=== PATIENT | female | born 1985 | race Caucasian/White ===

== ENCOUNTER 2023-06-01 16:06 | Inpatient (IN) | payer MEDICAID ==
[~2023-06-01] VITALS: Ht 170.2 cm; Wt 70.6 kg
[~2023-06-01 16:06] MED LIST: ALBU18HF12 IH; CARB-92 PO; DIVA500T53 PO; MULT1TAB28 PO; OLAN10TA74 PO; TOPI100T37 PO
[2023-06-01] MEDS ORDERED: ZOLPIDEM TARTRATE 10 MG TABLET PO PRN (17:30)
[2023-06-01] MEDS ORDERED: HALOPERIDOL 5 MG TABLET PO PRN (17:30)
[2023-06-01] MEDS ORDERED: LORazepam 2 MG TABLET PO PRN (17:30)
[2023-06-01 21:27] VITALS: BP 100/70; PULSE 72; RESP 19; TEMP 96
[2023-06-01 21:37] VITALS: BP 100/70; PULSE 72; RESP 19; TEMP 96.9; O2SAT 98
[2023-06-01 23:24] LABS: APPEARANCE,URINE CLEAR (CLEAR); BILIRUBIN,URINE NEGATIVE (NEGATIVE); GLUCOSE, URINE (UA) NEGATIVE (NEGATIVE); KETONES,URINE NEGATIVE (NEGATIVE); LEUKOCYTE ESTERASE ,URINE NEGATIVE (NEGATIVE); NITRATE,URINE NEGATIVE (NEGATIVE); OCCULT BLOOD,URINE MODERATE (NEGATIVE); PH,URINE 6.5 (5.0-8.0); PROTEIN,URINE NEGATIVE (NEGATIVE); SPECIFIC GRAVITIY, URINE 1.017 (1.003-1.030); UROBILINOGEN,URINE <=1.0 mg/dL (<=1.0)
[2023-06-01 23:44] LABS: BACTERIA,URINE None Seen /HPF (None Seen); SQUAMOUS EPITHELIAL CELL,UR None Seen /LPF (None Seen); WBC,URINE None Seen /HPF (0-5)
[2023-06-02 04:06] LABS: AMPHET/METH SCREEN,URINE NEGATIVE (NEGATIVE); BARBITURATE SCREEN, URINE NEGATIVE (NEGATIVE); BENZODIAZEPINES SCREEN,URINE NEGATIVE (NEGATIVE); CANNABINOID SCREEN,URINE NEGATIVE (NEGATIVE); COCAINE SCREEN,URINE NEGATIVE (NEGATIVE); METHADONE SCREEN, URINE NEGATIVE (NEGATIVE); OPIATE SCREEN,URINE NEGATIVE (NEGATIVE); PHENCYCLIDINE SCREEN,URINE NEGATIVE (NEGATIVE)
[2023-06-02] MEDS ORDERED: MAG HYDROX/AL HYDROX/SIMETH ES 30 ML SUSPENSION UDCUP PO PRN (05:30)
[2023-06-02] MEDS ORDERED: PETROLATUM,WHITE 28 GM JELLY TP PRN (05:30)
[2023-06-02] MEDS ORDERED: MAGNESIUM HYDROXIDE SUSPENSION 30 ML UDCUP PO PRN (05:30)
[2023-06-02] MEDS ORDERED: LOPERAMIDE HCL 2 MG CAPSULE PO PRN (05:30)
[2023-06-02] MEDS ORDERED: OMEPRAZOLE 20 MG CAPSULE PO PRN (05:30)
[2023-06-02] MEDS ORDERED: BACITRACIN 28 GM OINTMENT TP PRN (05:30)
[2023-06-02] MEDS ORDERED: CloNIDine HCL 0.1 MG TABLET PO PRN (05:30)
[2023-06-02] MEDS ORDERED: ACETAMINOPHEN 325 MG TABLET PO PRN (05:30)
[2023-06-02] MEDS ORDERED: ALBUTEROL SULFATE HFA 90 MCG/PUFF 8 GM INHALER IH PRN (05:30)
[2023-06-02] MEDS ORDERED: DOCUSATE SODIUM 100 MG CAPSULE PO PRN (05:30)
[2023-06-02] MEDS ORDERED: BENZOCAINE/MENTHOL LOZENGE PO PRN (05:30)
[2023-06-02] MEDS ORDERED: ONDANSETRON HCL 4 MG TABLET PO PRN (05:30)
[2023-06-02 09:19] VITALS: BP 107/65; PULSE 68; RESP 18; TEMP 96.3; O2SAT 98
[2023-06-02] MEDS: CarBAMazepine 200 MG TABLET PO SCH (10:54)
[2023-06-02] MEDS: TOPIRAMATE 100 MG TABLET PO SCH ×2 (10:54→18:03)
[2023-06-02 21:15] VITALS: BP 128/70; PULSE 62; RESP 18; TEMP 97.9; O2SAT 98
[2023-06-03 07:35] LABS: BASOPHILS % (AUTO) 0.3 % (0.0-2.0); EOSINOPHILS % (AUTO) 3.2 % (1.0-6.0); HEMATOCRIT 41.7 % (36-46); HEMOGLOBIN 13.5 g/dL (12.0-16.0); LYMPHOCYTES % (AUTO) 36.9 % (22.0-44.0); MEAN CORPUSCULAR HEMOGLOBIN 27.7 pg (26.0-34.0); MEAN CORPUSCULAR HGB CONC 32.4 G/dL (31.0-37.0); MEAN CORPUSCULAR VOLUME 86 fL (80-100); MONOCYTES # (AUTO) 0.5 K/uL (0.1-1.0); MONOCYTES % (AUTO) 8.9 % (2.0-9.0); NEUTROPHILS # (AUTO) 2.8 K/uL (1.8-7.7); NEUTROPHILS % (AUTO) 50.7 % (40.0-70.0); PLATELET COUNT (AUTO) 210 K/uL (150-450); RED BLOOD CELL COUNT(AUTO) 4.88 MIL/uL (4.00-5.20)
[2023-06-03 07:48] LABS: ALANINE AMINOTRANSFERASE 36 U/L (12-78); ALBUMIN 3.3 g/dL (3.4-5.0); ALKALINE PHOSPHATASE 135 U/L (46-116); ANION GAP 11 mmol/L (8-16); ASPARTATE AMINOTRANSFERASE 22 U/L (15-37); BILIRUBIN,TOTAL 0.2 mg/dL (0.1-1.0); CALCIUM, TOTAL 8.4 mg/dL (8.8-10.5); CARBON DIOXIDE 24 mmol/L (22-29); CHLORIDE 107 mmol/L (98-107); CHOL/HDL RATIO 4.4 (3.9-5.7); CHOLESTEROL 209 mg/dL (131-200); CREATININE 0.78 mg/dL (0.60-1.30); GLOMERULAR FILTR. RATE CALC > 60 mL/min (>60); GLUCOSE,RANDOM 94 mg/dL (70-110); HDL CHOLESTEROL 47 mg/dL (40-60); LDL CHOL (CALC.) 152 mg/dL (0-130); SODIUM SERUM 142 mmol/L (136-145); TOTAL PROTEIN, SERUM 7.2 g/dL (6.4-8.2); TRIGLYCERIDES 50 mg/dL (15-150)
[2023-06-03] MEDS: TOPIRAMATE 100 MG TABLET PO SCH ×2 (09:04→18:14)
[2023-06-03] MEDS: CarBAMazepine 200 MG TABLET PO SCH (09:04)
[2023-06-03 10:43] VITALS: BP 108/60; PULSE 83; RESP 17; TEMP 98.1; O2SAT 98
[2023-06-03 21:39] VITALS: BP 118/73; PULSE 81; RESP 17; TEMP 97.7; O2SAT 96
[2023-06-04 08:57] VITALS: BP 100/50; PULSE 65; RESP 18; TEMP 97.1; O2SAT 99
[2023-06-04] MEDS: TOPIRAMATE 100 MG TABLET PO SCH ×2 (08:58→16:46)
[2023-06-04] MEDS: CarBAMazepine 200 MG TABLET PO SCH (08:58)
[2023-06-04 20:31] VITALS: BP 101/74; PULSE 64; RESP 18; TEMP 97.7
[2023-06-05] MEDS: CarBAMazepine 200 MG TABLET PO SCH (08:08)
[2023-06-05] MEDS: TOPIRAMATE 100 MG TABLET PO SCH ×2 (08:08→17:00)
[2023-06-05 08:43] VITALS: BP 130/79; PULSE 75; RESP 17; TEMP 97.7; O2SAT 97
[2023-06-06] MEDS ORDERED: OLAN15TA2 PO (00:02)
[2023-06-06] MEDS ORDERED: DIVA-112 PO (00:03)
== END 2023-06-05 19:00 | disposition home or self-care (01) | DRG 750 ==
LOC: 3EI 20:15 → UNDOADMIN 20:15 → 3EI 06-03 21:01
PROVIDERS: ADMIT Psychiatry & Neurology Psychiatry; ATTEND Psychiatry & Neurology Psychiatry
DX: F25.9 Schizoaffective disorder, unspecified (principal); G40.909 Epilepsy, unspecified, not intractable, without status epilepticus; E55.9 Vitamin D deficiency, unspecified; G80.9 Cerebral palsy, unspecified; K59.00 Constipation, unspecified; R32 Unspecified urinary incontinence; J45.909 Unspecified asthma, uncomplicated; Z72.0 Tobacco use; Z90.49 Acquired absence of other specified parts of digestive tract; Z71.6 Tobacco abuse counseling
CPT/HCPCS: 80053; 80061; 80156; 80201; 80307; 81001; 84703; 85025

== ENCOUNTER 2025-07-15 23:12 | Inpatient (IN) | payer MEDICAID ==
[~2025-07-15] VITALS: Ht 170.2 cm; Wt 69.3 kg
[~2025-07-15 23:12] MED LIST changes: +DIVA-112 PO; +DIVA-153 PO; -DIVA500T53 PO; +OLAN15TA2 PO; +TOPI-258 PO; -TOPI100T37 PO
[2025-07-16] MEDS ORDERED: MAG HYDROX/ALUMINUM HYD/SIMETH ES 30 ML SUSPENSION UDCUP PO PRN
[2025-07-16] MEDS ORDERED: OLANZapine 5 MG RAPDIS TABLET PO PRN
[2025-07-16] MEDS ORDERED: PROMETHAZINE HCL 25 MG TABLET PO PRN
[2025-07-16] MEDS ORDERED: MELATONIN 5 MG TABLET PO PRN
[2025-07-16] MEDS ORDERED: LOPERAMIDE HCL 2 MG CAPSULE PO PRN
[2025-07-16] MEDS ORDERED: MAGNESIUM HYDROXIDE SUSPENSION 30 ML UDCUP PO PRN
[2025-07-16] MEDS: TUBERCULIN, PURIFIED PROTEIN DERIVATIVE 5 TU/0.1 ML SYRINGE ID ONE
[2025-07-16] MEDS: GuaiFENesin/D-METHORPHAN [SUGAR-FREE] 200-20MG/10 ML SYRUP UDCUP PO PRN (01:37)
[2025-07-16] MEDS: ZOLPIDEM TARTRATE 10 MG TABLET PO PRN (02:14)
[2025-07-16 02:45] VITALS: BP 104/68; PULSE 63; RESP 16; TEMP 98.4; O2SAT 98
[2025-07-16] MEDS: NALTREXONE HCL 50 MG TABLET PO SCH (08:46)
[2025-07-16] MEDS: THIAMINE 100 MG TABLET PO SCH (08:46)
[2025-07-16] MEDS: OLANZapine 5 MG RAPDIS TABLET PO SCH (08:46)
[2025-07-16] MEDS: FOLIC ACID 1 MG TABLET PO SCH (08:46)
[2025-07-16] MEDS: MULTIVITAMINS WITH MINERALS, THERAPEUTIC TABLET PO SCH (08:46)
[2025-07-16] MEDS: DIVALPROEX SODIUM 500 MG DR TABLET PO SCH (08:46)
[2025-07-16 09:01] VITALS: BP 116/68; PULSE 65; RESP 17; TEMP 98.7; O2SAT 96
[2025-07-16 09:37] LABS: PLATELET COUNT (AUTO) 130 K/uL (150-450); RED BLOOD CELL COUNT(AUTO) 4.45 MIL/uL (4.00-5.20); RED CELL DISTRIBUTION WIDTH 13.5 % (11.5-14.5); WHITE BLOOD COUNT (AUTO) 5.4 K/uL (4.5-11.0)
[2025-07-16 10:24] LABS: ASPARTATE AMINOTRANSFERASE 14 U/L (15-37); CALCIUM, TOTAL 8.2 mg/dL (8.8-10.5); CREATININE 0.57 mg/dL (0.60-1.30); GLOMERULAR FILTR. RATE CALC > 60 mL/min (>60); GLUCOSE,RANDOM 75 mg/dL (70-110); SODIUM SERUM 143 mmol/L (136-145); TOTAL PROTEIN, SERUM 6.7 g/dL (6.4-8.2); UREA NITROGEN, BLOOD 12 mg/dL (7-18)
[2025-07-16 10:25] LABS: CHOL/HDL RATIO 3.0 (3.9-5.7); LDL CHOL (CALC.) 83 mg/dL (0-130)
[2025-07-16] MEDS ORDERED: ALBUTEROL SULFATE HFA 90 MCG/PUFF 8 GM INHALER IH PRN (14:00)
[2025-07-16] MEDS: CHOLECALCIFEROL (VIT D3) 400 UNITS [10 MCG] TABLET PO SCH (14:00)
[2025-07-16] MEDS: LEVOTHYROXINE SODIUM 25 MCG TABLET PO ONE (14:36)
[2025-07-16] MEDS: OMEPRAZOLE 20 MG CAPSULE PO SCH (16:08)
[2025-07-16] MEDS: TOPIRAMATE 100 MG TABLET PO SCH (16:09)
[2025-07-16 20:18] VITALS: BP 125/72; PULSE 82; RESP 17; TEMP 98.1; O2SAT 98
[2025-07-17] MEDS ORDERED: TUBERCULIN, PURIFIED PROTEIN DERIVATIVE 5 TU/0.1 ML SYRINGE ID ONE (09:00)
[2025-07-17 09:24] VITALS: BP 103/64; PULSE 65; RESP 17; TEMP 97.3; O2SAT 100
[2025-07-17 10:56] LABS: PH,URINE DRUG SCREEN 7.0 (5.0-8.0)
[2025-07-17 11:11] LABS: ALCOHOL, URINE DRUG SCREEN NEGATIVE (NEGATIVE); AMPHET/METH SCREEN,URINE NEGATIVE (NEGATIVE); BARBITURATE SCREEN, URINE NEGATIVE (NEGATIVE); CANNABINOID SCREEN,URINE NEGATIVE (NEGATIVE); COCAINE SCREEN,URINE NEGATIVE (NEGATIVE); METHADONE SCREEN, URINE NEGATIVE (NEGATIVE)
[2025-07-17] MEDS: LEVOTHYROXINE SODIUM 25 MCG TABLET PO SCH (12:45)
[2025-07-17] MEDS: DIVALPROEX SODIUM 500 MG ER TABLET PO SCH (16:25)
[2025-07-17 20:13] VITALS: BP 108/70; PULSE 67; RESP 17; TEMP 98.1; O2SAT 98
[2025-07-18 08:40] VITALS: BP 107/69; PULSE 74; RESP 16; TEMP 98.3; O2SAT 96
[2025-07-18 14:13] VITALS: RESP 17; O2SAT 96
[2025-07-18] MEDS: ACETAMINOPHEN 325 MG TABLET PO PRN (14:13)
== END 2025-07-18 16:15 | disposition home or self-care (01) | DRG 761 ==
LOC: B3A 07-16 00:19 → UNDOADMIN 07-16 00:19 → B2S 07-16 01:04 → B3A 07-16 01:04 → UNDOADMIN 07-16 01:04
PROVIDERS: ADMIT Psychiatry & Neurology Child & Adolescent Psychiatry; ATTEND Psychiatry & Neurology Child & Adolescent Psychiatry
PROC: GZ56ZZZ Individual Psychotherapy, Supportive (ICD-10-PCS; 2025-07-17)
PROC: GZ52ZZZ Individual Psychotherapy, Cognitive (ICD-10-PCS; principal; 2025-07-18)
DX: F25.1 Schizoaffective disorder, depressive type (principal); R56.9 Unspecified convulsions; G80.9 Cerebral palsy, unspecified; I10 Essential (primary) hypertension; K21.9 Gastro-esophageal reflux disease without esophagitis; Z88.0 Allergy status to penicillin; Z88.6 Allergy status to analgesic agent; Z79.899 Other long term (current) drug therapy
CPT/HCPCS: 80053; 80061; 80307; 83036; 84439; 84443; 84703; 85025; 86592

== ENCOUNTER 2025-08-07 13:09 | Emergency (ER) | payer MEDICAID, OTHER ==
[~2025-08-07] VITALS: Ht 172.7 cm; Wt 72.9 kg
[~2025-08-07 13:09] MED LIST changes: -ALBU18HF12 IH; -DIVA-112 PO; -MULT1TAB28 PO; -OLAN15TA2 PO
[2025-08-07] MEDS ORDERED: LevETIRAcetam 1,000 MG in DEXTROSE 5%-WATER 100 ML IV ONE (13:15)
[2025-08-07 13:20] VITALS: TEMP 98.1
[2025-08-07 13:39] LABS: APPEARANCE,URINE CLEAR (CLEAR); GLUCOSE, URINE (UA) NEGATIVE (NEGATIVE); LEUKOCYTE ESTERASE ,URINE NEGATIVE (NEGATIVE); NITRATE,URINE NEGATIVE (NEGATIVE); OCCULT BLOOD,URINE NEGATIVE (NEGATIVE); SPECIFIC GRAVITIY, URINE 1.012 (1.003-1.030)
[2025-08-07 13:40] LABS: PLATELET COUNT (AUTO) 143 K/uL (150-450); RED BLOOD CELL COUNT(AUTO) 4.50 MIL/uL (4.00-5.20); RED CELL DISTRIBUTION WIDTH 12.9 % (11.5-14.5); WHITE BLOOD COUNT (AUTO) 4.5 K/uL (4.5-11.0)
[2025-08-07 13:44] LABS: CALCIUM, TOTAL 8.3 mg/dL (8.8-10.5); CREATININE 0.65 mg/dL (0.60-1.30); GLOMERULAR FILTR. RATE CALC > 60 mL/min (>60); GLUCOSE,RANDOM 125 mg/dL (70-110); SODIUM SERUM 142 mmol/L (136-145); UREA NITROGEN, BLOOD 10 mg/dL (7-18)
[2025-08-07 13:51] LABS: ASPARTATE AMINOTRANSFERASE 16.0 U/L (15-37); CREATINE KINASE, TOTAL ONLY 45.0 U/L (26-192); TOTAL PROTEIN, SERUM 7.1 g/dL (6.4-8.2)
[2025-08-07 13:55] LABS: TROPONIN I-HIGH SENSITIVITY 5 ng/L (<51)
[2025-08-07] MEDS ORDERED: PALI6TAB15 PO (14:18)
[2025-08-07] MEDS ORDERED: PROP10TA73 PO (14:18)
[2025-08-07] MEDS ORDERED: ROSU20TA98 PO (14:18)
[2025-08-07] MEDS ORDERED: LEVO25TA9 PO (14:18)
[2025-08-07] MEDS ORDERED: RISP0.5T80 PO (14:18)
[2025-08-07] MEDS ORDERED: CARB-92 PO (14:18)
[2025-08-07] MEDS ORDERED: OMEP-148 PO (14:18)
[2025-08-07] MEDS ORDERED: IBAN150T21 PO (14:18)
[2025-08-07] MEDS ORDERED: OLAN5TAB52 PO (14:18)
[2025-08-07] MEDS ORDERED: TRAZ-252 PO (14:18)
[2025-08-07 18:12] VITALS: BP 114/57; PULSE 53; RESP 15; O2SAT 96
== END 2025-08-07 18:54 ==
LOC: EMS 13:09
DX: G40.909 Epilepsy, unspecified, not intractable, without status epilepticus (principal); G80.9 Cerebral palsy, unspecified; R06.02 Shortness of breath; Z88.0 Allergy status to penicillin; Z88.6 Allergy status to analgesic agent; Z79.899 Other long term (current) drug therapy
CPT/HCPCS: 71045; 80048; 80076; 81003; 82550; 82962; 83880; 84484; 84703; 85025; 93005; 99285; J0712; J7060; 36415-L1; 36415-TC